=== PATIENT | female | born 1945 | race Caucasian/White ===

== ENCOUNTER 2023-09-11 11:59 | Emergency (ER) | payer OTHER, SELFPAY ==
[2023-09-11 12:07] VITALS: BP 114/66
--- NOTE | 2023-09-11 13:09 | ED.GENMED ---
History of Present Illness
General
Chief Complaint: Weakness
Source: patient and family
Time Seen by Provider: 09/11/23 12:46
Travel History
Have you had any contact with someone who has COVID-19?: No
Do you have any symptoms of coronavirus? Fever > 100 degrees, chills, cough, shortness of breath, sore throat, loss of taste or smell, muscle aches, or headache?: No
History of Present Illness
History of Present Illness:
78-year-old female with no significant past medical history presenting the emergency department for evaluation after she has experienced intermittent chest discomfort at varying times throughout the week describing the pain to be sharp with
intermittent pressure, lasting for only a few minutes and then resolving spontaneously, twice has become a little short of breath, currently asymptomatic. Patient states she decided to come to the emergency department today at the request of urgent
care who she went to earlier today. Patient states that while she is asymptomatic today she was concerned as the symptoms had been intermittent and wanted to make sure she was not having any cardiac complications. Of note, patient works out
regularly and states she does not get symptoms while exercising. She has not attempted any medications for relief of her symptoms. Her only risk factor for heart disease is family history noting mother in her 90s had an CT. She denies any fevers
or recent illnesses. Social history noncontributory. Triage note patient seemed very upset while in triage however patient states that she was more so just scared about her visit here as this is only the second time she has ever been to a hospital.
Past History
Past History
ED Past Medical History: None
ED Past Surgical History: Gynecological and Orthopedic
Social History
Tobacco: Non-smoker
Alcohol: Occasional
Drug: None
Personal:
Living: alone
Employment: Retired
Family History
Family History: Other
Review of Systems
Review of Systems
All Other Systems: ROS reviewed and negative except as documented in HPI and ROS
Phy Exam
Physical Exam
Physical Exam:
GENERAL: Alert , in no apparent distress
EYE: clear conjunctiva b/l
HEAD: NCAT
ENT: o/p clr, mmm.
CARDIAC: Regular rate and rhythm .
LUNGS: Clear breath sounds bilaterally, no acute respiratory distress, no wheezes/rales/rhonchi
ABDOMEN: Soft, without focal tenderness, no r/g, no cvat
NEUROLOGICAL: Alert and oriented
SKIN: Warm and dry, skin intact.
MUSCULOSKELETAL: No edema, well perfused.
PSYCH: Normal and appropriate interaction.
Scores
Heart Failure Risk
Heart Failure Risk Score: Not Applicable
Heart Score for Chest Pain Patients
STEMI patient?: No
History: Slightly or Non-Suspicious
ECG: Normal
Age: >/= 65 years
Risk Factors: 1 or 2 Risk Factors
Troponin: </= Normal Limit
Heart Score for Chest Pain Patients: 3
Heart Score Risk: 2.5% MACE over next 6 weeks
Withdrawal Assessment of Alcohol
Withdrawal Assessment Completed?: Not applicable
Course
Orders/Labs/Results
Orders:
Orders
09/11/23 12:00
EKG [Electrocardiogram (*1)] Urgent
Reason for Study: Chest Pain
09/11/23 12:01
EKG- Treatment ONCE
09/11/23 13:07
CR Chest - 2 Views Urgent
Comment:
Reason For Exam: intermittent chest pain
09/11/23 13:13
Complete Blood Count/With Diff Urgent
Comprehensive Metabolic Panel Urgent
Troponin I Urgent
Abnormal Lab Results
09/11/23
13:13
RBC 4.15 L 10^6/uL
(4.20-5.40)
Hct 35.8 L %
(37.0-47.0)
Monocytes % 9.7 H %
(1.7-9.3)
BUN 23 H mg/dl
(7-17)
09/11/23 13:13
09/11/23 13:13
Vital Signs
Initial and Last Documented VS:
Initial Vital Signs
Temp Pulse Resp BP Pulse Ox
97.8 F 80 20 114/66 100
09/11/23 12:07 09/11/23 12:07 09/11/23 12:07 09/11/23 12:07 09/11/23 12:07
Last Documented Vital Signs
Temp Pulse Resp BP Pulse Ox
97.8 F 70 20 114/66 100
09/11/23 12:07 09/11/23 13:06 09/11/23 13:06 09/11/23 12:07 09/11/23 13:06
MDM/Problems Addressed
Differential Diagnosis Includes:
Atypical ACS presentation, muscular etiology, GERD/gastritis
MDM/Problems Addressed:
78-year-old female present emergency department for evaluation of intermittent chest discomfort and shortness of breath over the last week. No symptoms during exercise. Asymptomatic presently. Patient is hemodynamically stable and in no acute
distress. Will check labs, chest x-ray. EKG done in triage is nonischemic. Anticipate need for outpatient follow-up.
*Radiology
Radiology exam reviewed: preliminary read by ED provider (Unremarkable chest x-ray)
*Pulse Oximetry
Patient hypoxic: no
*EKG
Interpreted by ED Provider?: Yes
Comparison EKG: no changes
Heart Rate: 79
Rate: normal
Rhythm: sinus
[place]: normal axis
Ischemia: other (T wave inversion inferior leads)
*[place] Interpretation
Rate: normal
Rhythm: sinus
*Critical Care Note
Total Time (30-74mins, 75-104mins- exclusive of procedures): Not Applicable
Patient Management
Escalation/DeEscalation of care consider admission/obs:
Patient's workup is unremarkable. She remains symptom-free. Chest pain hotline notified to help expedite outpatient follow-up. Aware of return precautions emergency department but otherwise stable for discharge home.
ED Attending Note
-
Portions of this chart may have been created with voice recognition software.� Occasional wrong word or��sound alike� substitutions may have occurred due to the inherent limitations of voice recognition software.
Discharge Plan
Departure
Patient Disposition: Home (Routine Discharge)
Date of Disposition: 09/11/23
Time of Disposition: 13:48
Patient with high blood pressure during this ER visit?: No
Discharge Problem:
Chest pain
Instructions: Chest Pain CBC Follow Up
Prescriptions:
No Action
[id number]-minerals [Multiple Vitamin, Womens] 1 EACH tablet
1 ea PO DAILY
Biotin
1 cap PO DAILY
Glucosamine HCl
1 tab PO DAILY
Vitamin C
1 tab PO DAILY
Interventions
Interventions:
*Risk Screen - Suicide Last Done: 09/11/23 12:11
*General Assessment Last Done: 09/11/23 12:11
*Neglect/Abuse Screening Last Done: 09/11/23 12:11
*Nursing Disposition Last Done: 09/11/23 14:07
ED- Cardiac Assessment Last Done: 09/11/23 13:14
ED- Neurological Assessment Last Done: 09/11/23 13:14
ED- Pulmonary Assessment Last Done: 09/11/23 13:14
[2023-09-11 13:24] LABS: % Basophils 0.5 % (0-2); % Eosinophils 0.2 % (0-6); % Immature Granulocytes 0.3 % (0-0.5); % Lymphocytes 24.6 % (20.5-51.1); % Monocytes 9.7 % (1.7-9.3); % Neutrophils 64.7 % (42.2-75.2); Absolute Lymphocytes 1.5 10^3/uL (1.2-3.4); Absolute Monocytes 0.6 10^3/uL (0.1-0.6); Hematocrit 35.8 % (37.0-47.0); Hemoglobin 12.4 g/dL (12.0-16.0); Mean Corp Hgb Conc. 34.6 g/dL (33.0-37.0); Mean Corpuscular Hgb 29.9 pg (27.0-31.0); Mean Corpuscular Volume 86.3 fL (81.0-99.0); Mean Platelet Volume 9.9 fL (7.4-10.4); Nucleated Red Blood Cells % 0 %; Platelet Count 166 10^3/uL (130-400); Red Blood Cell Count 4.15 10^6/uL (4.20-5.40); Red Cell Dist. Width 12.5 % (11.5-14.5); White Blood Cell Count 6.2 10^3/uL (4.8-10.8)
[2023-09-11 13:34] LABS: ALT (SGPT) 22 U/L (0-35); AST (SGOT) 26 U/L (14-36); Albumin 4.3 g/dl (3.5-5.0); Alkaline Phosphatase 69 U/L (38-126); Blood Urea Nitrogen 23 mg/dl (7-17); Calcium 9.6 mg/dl (8.4-10.2); Carbon Dioxide 22 mmol/L (22-30); Chloride 107 mmol/L (98-107); Glucose 93 mg/dl (70-99); Potassium 3.9 mmol/L (3.5-5.1); Sodium 136 mmol/L (135-145); Total Bilirubin 0.8 mg/dl (0.2-1.3); Total Protein 6.5 g/dl (6.3-8.2); eGFR > 60.00
[2023-09-11 13:45] LABS: Troponin I < 0.012 ng/ml
== END 2023-09-11 14:07 | disposition home or self-care (01) ==
LOC: EMR 11:59
PROVIDERS: Physician Assistant Medical; EMERGENCY PHYSICIAN Emergency Medicine; FAMILY PHYSICIAN Physician Assistant Medical
DX: R07.89 Other chest pain (principal); R06.02 Shortness of breath
CPT/HCPCS: 99285; 71046; 80053; 84484; 85025; 93005